=== PATIENT | male | born 1970 | race Caucasian/White ===

== ENCOUNTER 2019-11-08 14:42 | Emergency (ER) | payer BC ==
[2019-11-08 15:25] VITALS: BP 135/83; PULSE 82
[2019-11-08] MEDS ORDERED: Tamsulosin 0.4 MG Cap.ER PO ONE (17:38)
--- NOTE | 2019-11-08 17:40 | EDM.PDOC ---
ED HPI GENERAL MEDICAL PROBLEM - General Chief Complaint: Flank Pain Stated Complaint: KIDNEY AND LOW ABD PAIN Time Seen by Provider: 11/08/19 17:26 Source of Information: Reports: Patient History Limitations: Reports: No Limitations - History of Present Illness INITIAL COMMENTS - FREE TEXT/NARRATIVE: Mr. Aguirre is a very pleasant 49-year-old gentleman who now presents to the ED with a complaint of left flank pain radiating into his left groin since yesterday, 11/07/2019. The pain comes and goes. He was able to sleep last night, but felt the pain again this morning. He has not identified any modifiers. No urinary symptoms. No recent fever. No prior similar symptoms. Here in the ED, the patient is found to be hemodynamically stable, afebrile, saturating 95% on room air. Other than the above symptoms, the patient denies recent fever, chills, sore throat, ear pain, nasal or sinus congestion, cough, dyspnea, chest pain, palpitations, nausea, vomiting, constipation, diarrhea, abdominal pain, urinary symptoms, recent weight gain or weight loss, recent bloody bowel movements or black bowel movements, recent joint aches, headaches, or rashes. The patient's PCP is Dr. Rufus Luna. - Related Data Allergies Allergy/AdvReac Type Severity Reaction Status Date / Time No Known Allergies Allergy Verified 11/08/19 15:25 Home Meds: Home Meds Cyclobenzaprine [Flexeril] 5 mg PO TID PRN #12 tablet 07/17/15 [Rx] Hydrocodone/Acetaminophen [Hydrocodon-Acetaminophen 5-325] 1 each PO Q6H PRN #10 tablet 07/17/15 [Rx] Past Medical History HEENT History: Reports: Impaired Vision Endocrine/Metabolic History: Reports: Obesity/BMI 30+ - Past Surgical History GI Surgical History: Reports: Appendectomy Social & Family History - Tobacco Use Smoking Status *Q: Never Smoker - Alcohol Use Alcohol Use History: Yes Alcohol Use Frequency: Socially - Recreational Drug Use Recreational Drug Use: No - Living Situation & Occupation Living situation: Reports: , with Spouse Occupation: Employed (Sales for [employer]) ED ROS GENERAL - Review of Systems Review Of Systems: Comprehensive ROS is negative, except as noted in HPI. ED EXAM, RENAL/ - Physical Exam Exam: See Below Exam Limited By: No Limitations General Appearance: Alert, WD/WN, No Apparent Distress Eye Exam: Bilateral Eye: EOMI, Normal Inspection Ears: Normal External Exam, Hearing Grossly Normal Nose: Normal Inspection Throat/Mouth: Normal Inspection, Normal Lips, Normal Voice, No Airway Compromise Head: Atraumatic, Normocephalic Neck: Normal Inspection, Full Range of Motion Respiratory/Chest: No Respiratory Distress, Lungs Clear, Normal Breath Sounds, No Accessory Muscle Use Cardiovascular: Normal Peripheral Pulses, Regular Rate, Rhythm, No Edema, No Gallop, No JVD, No Murmur, No Rub GI/Abdominal: Normal Bowel Sounds, Soft, Non-Tender (including the LLQ), No Organomegaly, No Distention, No Abnormal Bruit, No Mass (Male) Exam: Deferred Rectal (Males) Exam: Deferred Back Exam: Normal Inspection, Full Range of Motion. No: CVA Tenderness (L), CVA Tenderness (R) Extremities: Normal Inspection, Normal Range of Motion, No Pedal Edema, Normal Capillary Refill Neurological: Alert, Oriented, Normal Cognition, No Motor/Sensory Deficits Psychiatric: Normal Affect Skin Exam: Warm, Dry, Intact, Normal Color, No Rash Course - Vital Signs Last Recorded V/S: Last Vital Signs Temp 36.6 C 11/08/19 15:22 Pulse 82 11/08/19 15:22 Resp 16 11/08/19 15:22 BP 135/83 11/08/19 15:22 Pulse Ox 95 11/08/19 15:22 - Orders/Labs/Meds Labs: Laboratory Tests 11/08/19 Range/Units 16:11 Urine Color Yellow (Yellow) Urine Appearance Slt cloudy H (Clear) Urine pH 5.5 (5.0-8.0) Ur Specific [place] > or = 1.030 (1.005-1.030) Urine Protein Trace H (Negative) Urine Glucose (UA) Negative (Negative) Urine Ketones Negative (Negative) Urine Occult Blood 3+ H (Negative) Urine Nitrite Negative (Negative) Urine Bilirubin Negative (Negative) Urine Urobilinogen 0.2 (0.2-1.0) Ur Leukocyte Esterase Negative (Negative) Urine RBC 40-50 H (0-5) /hpf Urine WBC 0-5 (0-5) /hpf Ur Squamous Epith Cells 0-5 (0-5) /hpf Urine Bacteria Few (FEW) /hpf Urine Mucus Few (FEW) /hpf Meds: Medications Discontinued Medications Generic Name Dose Route Start Last Admin Trade Name Fredy PRN Reason Stop Dose Admin Tamsulosin HCl 0.4 mg 11/08/19 17:38 11/08/19 18:08 Flomax PO 11/08/19 17:39 0.4 mg ONETIME ONE Administration - Re-Assessments/Exams Free Text/Narrative Re-Assessment/Exam: 11/08/19 17:37 As above, the patient has been experiencing left flank pain radiating to his left groin on and off since yesterday. At present, he has essentially no pain, and his physical exam is benign, however, the urinalysis collected by triage shows 3+ occult blood with 40-50 RBCs. Both his history and the urinalysis are consistent with a left ureterolith, therefore I recommended, and the patient agreed to, a CT of the abdomen and pelvis without contrast. In the meantime, although the patient does not currently have any pain, he will receive a single dose of Flomax. 11/08/19 18:23 CT of the abdomen and pelvis without contrast is read by Dr. Booker as: 1. No renal calculi, ureteral dilatation or ureteral stone is seen. 2. Other findings as noted above believed to be nonacute. 11/08/19 18:55 CT results discussed with the patient and his mother. As above, the patient's urinalysis demonstrated hematuria, however, the CT scan is unremarkable. I suspect that the patient had a small stone that he passed prior to the CT scan, and that he had briefly enough so that no hydronephrosis or hydroureter was present. Since the patient is currently pain-free, and already received a dose of Flomax here in the ED, I do not believe that any prescriptions are necessary. I will discharge him home. Departure - Departure Time of Disposition: 18:56 Disposition: Home, Self-Care 01 Condition: Good Clinical Impression: Ureterolithiasis - Discharge Information *PRESCRIPTION DRUG MONITORING PROGRAM REVIEWED*: Not Applicable *COPY OF PRESCRIPTION DRUG MONITORING REPORT IN PATIENT GEMA: Not Applicable Instructions: Kidney Stones, [id number] Referrals: Rufus Luna MD [Primary Care Provider] - Shiloh Stephens NP [Nurse Practitioner] - Forms: ED Department Discharge Additional Instructions: You were seen in the emergency room after developing left flank pain radiating into your left groin yesterday. Work-up in the ER included a urinalysis and a CT scan of your abdomen and pelvis without contrast. The urinalysis showed a considerable amount of blood, however, the CT scan did not find any abnormalities. Based on your history, physical exam, and ER tests, we suspect that you had a kidney stone that you passed prior to undergoing the CT scan. No further specific treatment is necessary. Stay adequately hydrated. We recommend that you follow-up with Shiloh Stephens NP, or any one of the other providers in the clinic, to establish a PCP. If you redevelop similar symptoms in the future, please do not hesitate to return to the ER. Sepsis Event Note (ED) - Evaluation Sepsis Screening Result: No Definite Risk - Focused Exam Vital Signs: Vital Signs Temp Pulse Resp BP Pulse Ox 11/08/19 15:22 36.6 C 82 16 135/83 95
--- NOTE | 2019-11-08 18:21 | CT ---
CT abdomen and pelvis Technique: Multiple axial sections were obtained from above the dome of the diaphragm inferiorly through the pubic symphysis. Intravenous and oral contrast not utilized. Study performed as a ureteral stone protocol. Findings: No ureteral dilatation or ureteral stone is seen. No bladder calculi are noted. Visualized lung bases show nothing acute. Liver contains fatty infiltration. Spleen appears normal. Gallbladder contains no calcified gallstones. Pancreas is within normal limits. Aorta shows no aneurysm. No retroperitoneal adenopathy or mesenteric abnormalities are seen. Diverticuli are seen within the sigmoid colon without diverticulitis. No free fluid or inflammatory change is seen within the abdomen or pelvis. Appendix not visualized with certainty. No free fluid or inflammatory change is appreciated. Bone window settings shows degenerative change within the spine which is most severe at L4-5 and L5-S1 with disc space narrowing, endplate sclerosis, vacuum phenomena as well as anterior and posterior spurring. Impression: 1. No renal calculi, ureteral dilatation or ureteral stone is seen. 2. Other findings as noted above believed to be nonacute. Diagnostic code #2 This report was dictated in MDT
== END 2019-11-08 19:40 | disposition home or self-care (01) ==
LOC: JD.ED 14:42
DX: N20.1 Calculus of ureter (principal); E66.9 Obesity, unspecified
CPT/HCPCS: 74176; 81001; 99284; A9270; 99283

== ENCOUNTER 2022-12-02 17:51 | Emergency (ER) | payer BC ==
[2022-12-02 21:25] VITALS: BP 129/61; PULSE 77
== END 2022-12-02 21:24 | disposition home or self-care (01) ==
LOC: JD.ED 17:51
DX: K59.00 Constipation, unspecified (principal); E66.9 Obesity, unspecified; Z68.39 Body mass index [BMI] 39.0-39.9, adult
CPT/HCPCS: 74019; 74019-26; 99282; 99283

== ENCOUNTER 2023-01-08 10:24 | Day surgery (SDC) | payer BC ==
[~2023-01-08 10:24] MED LIST: Lactated Ringers 1,000 ML IV SCH; Sodium Chloride 0.9% 10 ML Syringe FLUSH PRN; Sodium Chloride 0.9% 10 ML Syringe FLUSH SCH
[2023-01-08] MEDS ORDERED: fentaNYL 100 MCG/2 ML SDV ONE (11:42)
[2023-01-08] MEDS ORDERED: Propofol 200 MG/20 ML SDV ONE (11:42)
[2023-01-08] MEDS ORDERED: Midazolam 1 MG/ML 2 ML SDV ONE (11:49)
[2023-01-08 14:23] VITALS: BP 116/78; PULSE 74
== END 2023-01-08 14:08 | disposition home or self-care (01) ==
LOC: JD.SDS 10:24
PROVIDERS: ATTEND Surgery
DX: Z12.11 Encounter for screening for malignant neoplasm of colon (principal); D12.5 Benign neoplasm of sigmoid colon; K57.30 Diverticulosis of large intestine without perforation or abscess without bleeding; K64.8 Other hemorrhoids; K21.9 Gastro-esophageal reflux disease without esophagitis
CPT/HCPCS: 43235; 45385; J2250; J2704; J3010; J7120; 00813